=== PATIENT | male | born 1960 | race Caucasian/White ===

== ENCOUNTER 2021-05-07 22:35 | Outpatient (REF) | payer OTHER, SELFPAY ==
[2021-05-07 23:36] LABS: Influenza A PCR NEGATIVE (Negative); Influenza B PCR NEGATIVE (Negative); Resp Syncy Virus RNA Qual PCR NEGATIVE (Negative); SARS COV2 PCR INHOUSE NEGATIVE (Negative)
== END 2021-05-07 22:36 | disposition home or self-care (01) ==
LOC: HO.LAB 22:35
PROVIDERS: Internal Medicine; Visit Provider Internal Medicine
DX: Z20.822 Contact with and (suspected) exposure to COVID-19 (principal)
CPT/HCPCS: 0241U; 36415

== ENCOUNTER 2021-05-17 13:12 | Outpatient (REF) | payer OTHER, SELFPAY ==
[2021-05-17 14:05] LABS: Influenza A PCR NEGATIVE (Negative); Influenza B PCR NEGATIVE (Negative); Resp Syncy Virus RNA Qual PCR NEGATIVE (Negative); SARS COV2 PCR INHOUSE NEGATIVE (Negative)
== END 2021-05-17 13:13 | disposition home or self-care (01) ==
LOC: HO.LNP 13:12
PROVIDERS: Visit Provider Internal Medicine
DX: Z20.822 Contact with and (suspected) exposure to COVID-19 (principal)
CPT/HCPCS: 0241U

== ENCOUNTER 2021-09-20 10:10 | Outpatient (REF) | payer OTHER, SELFPAY ==
[2021-09-20 14:15] LABS: Influenza A PCR NEGATIVE (Negative); Influenza B PCR NEGATIVE (Negative); Resp Syncy Virus RNA Qual PCR NEGATIVE (Negative); SARS COV2 PCR INHOUSE NEGATIVE (Negative)
== END 2021-09-20 10:11 | disposition home or self-care (01) ==
LOC: HO.10HDLNP 10:10
PROVIDERS: Visit Provider Internal Medicine
DX: Z20.822 Contact with and (suspected) exposure to COVID-19 (principal)
CPT/HCPCS: 0241U

== ENCOUNTER 2022-05-23 09:25 | Outpatient (REF) | payer OTHER, SELFPAY ==
[2022-05-23 10:29] LABS: MANUAL DIFF FLAG NO
[2022-05-23 10:41] LABS: Basophils Percent Auto 0.5 % (0-2); Eosinophils Percent Auto 0.5 % (0-4); Hematocrit 42.3 % (42.0-52.0); Hemoglobin 14.4 g/dl (14.0-18.0); Imm Gran Abs Auto 0.03 X10*3/uL (0.00-0.03); Imm Gran Pct Auto 0.4 % (0.0-0.4); Lymphocytes Absolute Auto 1.3 X10*3/uL (1.2-4.9); Lymphocytes Percent Auto 15.1 % (20-40); Mean Corpuscular Hemoglobin 29.1 pg (27.0-33.0); Mean Corpuscular Volume 85.6 fL (80.0-98.0); Mean Platelet Volume 10.4 fL (9.4-12.4); Monocytes Absolute Auto 0.7 X10*3/uL (0.1-1.2); Monocytes Percent Auto 8.2 % (2-11); Neutrophils Absolute Auto 6.4 x10*3/uL (2.0-8.3); Neutrophils Percent Auto 75.3 % (45-73); Platelet Count 309 X10*3/uL (160-400); Red Blood Count 4.94 X10*6/uL (4.60-5.80); White Blood Count 8.5 X10*3/uL (4.8-10.8)
[2022-05-23 10:52] LABS: Alanine Aminotransferase 25 U/L (0-40); Albumin Level 4.6 g/dL (3.5-5.0); Alkaline Phosphatase 77 U/L (39-117); Anion Gap 14 (12-20); Aspartate Amino Transferase 29 U/L (5-37); Bilirubin Total 0.5 mg/dL (0.0-1.0); Blood Urea Nitrogen 15 mg/dL (9-16); Calcium 9.6 mg/dL (8.4-10.2); Carbon Dioxide 27 mmol/L (22-29); Chloride 106 mmol/L (96-108); Cholesterol 197 mg/dL; Estimated Glomerular Filt Rate > 60; Glucose Fasting 106 mg/dL (60-99); HDL Cholesterol 48 mg/dL; LDL Cholesterol Calculated 135 mg/dl; Potassium 4.8 mmol/L (3.3-5.1); Sodium 142 mmol/L (135-145); Total Protein 7.1 g/dL (6.5-8.0); Triglycerides 70 mg/dL
[2022-05-23 11:14] LABS: Prostate Specific Antigen Scr 1.45 ng/mL (<0.05-4.0)
== END 2022-05-23 09:26 | disposition home or self-care (01) ==
LOC: HO.10HDL 09:25
PROVIDERS: Visit Provider Internal Medicine
DX: Z00.00 Encounter for general adult medical examination without abnormal findings (principal); Z12.5 Encounter for screening for malignant neoplasm of prostate
CPT/HCPCS: 36415; 80053; 80061; 84153; 85025

== ENCOUNTER 2022-08-05 09:00 | Outpatient (REF) | payer OTHER, SELFPAY ==
[2022-08-05 11:15] LABS: Alanine Aminotransferase 31 U/L (0-40); Aspartate Amino Transferase 28 U/L (5-37); Cholesterol 187 mg/dL; HDL Cholesterol 36 mg/dL; LDL Cholesterol Calculated 125 mg/dl; Triglycerides 132 mg/dL
== END 2022-08-05 09:01 | disposition home or self-care (01) ==
LOC: HO.10HDL 09:00
PROVIDERS: Visit Provider Internal Medicine
DX: E78.00 Pure hypercholesterolemia, unspecified (principal)
CPT/HCPCS: 36415; 80061; 82550; 84450; 84460

== ENCOUNTER 2024-01-29 09:07 | Outpatient (REF) | payer OTHER, SELFPAY ==
[2024-01-29 10:22] LABS: MANUAL DIFF FLAG NO
[2024-01-29 10:46] LABS: Hematocrit 45.4 % (42.0-52.0); Hemoglobin 15.7 g/dl (14.0-18.0); Mean Corpuscular HGB Conc 34.6 g/dl (31.0-36.0); Mean Corpuscular Volume 86.6 fL (80.0-98.0); Red Blood Count 5.24 X10*6/uL (4.60-5.80); Red Cell Distribution Width 12.8 % (11.0-16.0); White Blood Count 10.1 X10*3/uL (4.8-10.8)
[2024-01-29 10:47] LABS: Basophils Absolute Auto 0.1 X10*3/uL (0.0-0.2); Basophils Percent Auto 0.7 % (0-2); Eosinophils Absolute Auto 0.1 X10*3/uL (0.0-0.4); Eosinophils Percent Auto 0.8 % (0-4); Imm Gran Abs Auto 0.04 X10*3/uL (0.00-0.03); Imm Gran Pct Auto 0.4 % (0.0-0.4); Lymphocytes Absolute Auto 1.6 X10*3/uL (1.2-4.9); Lymphocytes Percent Auto 16.2 % (20-40); Mean Platelet Volume 10.3 fL (9.4-12.4); Monocytes Percent Auto 10.1 % (2-11); Neutrophils Absolute Auto 7.3 x10*3/uL (2.0-8.3); Neutrophils Percent Auto 71.8 % (45-73); Platelet Count 279 X10*3/uL (160-400)
[2024-01-29 11:09] LABS: Alanine Aminotransferase 41 U/L (0-40); Albumin Level 4.3 g/dL (3.5-5.0); Alkaline Phosphatase 78 U/L (39-117); Anion Gap 13 (12-20); Aspartate Amino Transferase 35 U/L (5-37); Bilirubin Total 0.7 mg/dL (0.0-1.0); Blood Urea Nitrogen 11 mg/dL (9-16); Calcium 9.6 mg/dL (8.4-10.2); Carbon Dioxide 29 mmol/L (22-29); Chloride 105 mmol/L (96-108); Cholesterol 190 mg/dL (<200); Estimated Glomerular Filt Rate > 60; Glucose Fasting 118 mg/dL (60-99); HDL Cholesterol 39 mg/dL (>40); LDL Cholesterol Calculated 127 mg/dL (<100); Potassium 4.1 mmol/L (3.3-5.1); Sodium 143 mmol/L (135-145); Total Protein 7.1 g/dL (6.5-8.0); Triglycerides 123 mg/dL (<150)
[2024-01-29 11:14] LABS: Prostate Specific Antigen Scr 0.51 ng/mL (<0.05-4.0)
== END 2024-01-29 09:08 | disposition home or self-care (01) ==
LOC: HO.10HDL 09:07
PROVIDERS: Visit Provider Internal Medicine
DX: Z12.5 Encounter for screening for malignant neoplasm of prostate (principal); N40.0 Benign prostatic hyperplasia without lower urinary tract symptoms; E78.00 Pure hypercholesterolemia, unspecified
CPT/HCPCS: 36415; 80053; 80061; 84153; 85025

== ENCOUNTER 2025-03-24 09:04 | Outpatient (AMB) | payer OTHER, SELFPAY ==
--- NOTE | 2025-03-24 09:08 | MHC.PC.OV ---
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 Hyperlipidemia-on atorvastatin 40 mg daily. Last LDL 127 Tubular adenoma-last colonoscopy 06/24 2020 J[place]SEY-underwent maxillomandibular advancement surgery. Not using CPAP despite still having JERSEY diagnosis following procedure Concerns: None Health maintenance: Last screening colonoscopy 06/24/2020 with tubular adenoma and 5 year follow-up advised. Dr. George Due for PSA ROS: General: No fevers, malaise, unintentional weight loss Cardiovascular: No chest pain, palpitations, or leg edema Respiratory: No shortness of breath, wheezing, cough Neuro: No headaches, weakness, paresthesias Skin: No rashes or lesions EXAM: Constitutional - Awake and Alert, No apparent distress Eyes - PERRL Cardiovascular - S1S2, RRR, No edema Respiratory - Normal lung expansion, Normal respiratory effort, No respiratory distress, CTA bilaterally Extremities - no calf tenderness bilaterally, no swelling Skin - Warm/Dry Neurological - Alert & oriented x3 Psychological - Appropriate affect PFSH Medical History (Updated 03/24/25 @ 09:34 by MAYCO Velazquez) Tubular adenoma J[place]SEY (obstructive sleep apnea) HLD (hyperlipidemia) Family History (Updated 03/24/25 @ 09:33 by MAYCO Velazquez) Sister Lymphoma Questionnaire PHQ-9 Over the last 2 weeks, how often have you been bothered by any of the following problems? 1. Little interest or pleasure in doing things: not at all 2. Feeling down, depressed, or hopeless: not at all 3. Trouble falling or staying asleep, or sleeping too much: not at all 4. Feeling tired or having little energy: not at all 5. Poor appetite or overeating: not at all 6. Feeling bad about yourself - or that you are a failure or have let yourself or your family down: not at all 7. Trouble concentrating on things, such as reading the newspaper or watching television: not at all 8. Moving or speaking so slowly that other people could have noticed. Or the opposite - being so fidgety or restless that you have been moving around a lot more than usual: not at all 9. Thoughts that you would be better off or of hurting yourself in some way: not at all Total score: 0 Source: Developed by Drs. Vinicio Gonzalez, Ese White, Herb Ruffin and colleagues, with an educational emmanuel from [employer]. Thrive Questionnaire Date Thrive assessed: 03/24/25 I am a: Patient What is your living situation today?: I have a steady place to live Within the past 12 months, did the food you bought not last and you didn't have the money to get more?: Never true Within the past 12 months, did you worry whether your food would run out before you got money to buy more?: Never true Do you have trouble paying for medicines?: No Do you have trouble getting transportation to medical appointments?: No Do you have trouble paying your heating and electricity bill?: No Do you have trouble taking care of your child, family member or friend?: No Do you have trouble with day-to-day activities such as bathing, preparing meals, shopping, managing finances, etc.?: No Are you currently unemployed and looking for a job?: No Are you interested in more education?: No THRIVE Score: 0 CAM-7 AMB Questionnaire CAM-7 Date CAM - 7 assessed: 03/24/25 Feeling nervous, anxious, or on edge: 0 = Not at all Not being able to stop or control worryin = Not at all Worrying too much about different things: 0 = Not at all Trouble relaxin = Not at all Being so restless that it is hard to sit still: 0 = Not at all Becoming easily annoyed or irritable: 0 = Not at all Feeling afraid as if something awful might happen: 0 = Not at all Total CAM-7 score (0-4 normal; 5-9 mild; 10-14 moderate; 15-21 severe): 0 Source: Developed by Drs. Vinicio Gonzalez, Ese White, Herb Ruffin and colleagues, with an educational emmanuel from [employer]. Physical exam (Primary Care) Vital Signs: Last Vital Signs Temp 97.2 F 03/24/25 09:11 Pulse 57 03/24/25 09:11 Resp 16 03/24/25 09:11 BP 152/82 H 03/24/25 09:11 Pulse Ox 98 03/24/25 09:11 Oxygen Delivery Method Room Air 03/24/25 09:11 BMI result Body Mass Index 29.2 PHQ-9: PHQ-9 Score PHQ-9: Total score 0 03/24/25 09:24 Thrive Assessment: Date of Thrive Assessment Date Thrive assessed 03/24/25 03/24/25 09:21 Coding Level of Care Code New Pt Level 4 (62063) Complex EM visit Add On G2211 Diagnoses HLD (hyperlipidemia) E78.5 [place] (obstructive sleep apnea) G47.33 Tubular adenoma D36.9 Assessment & Plan Assessment & Plan (1) HLD (hyperlipidemia): Code(s): E78.5 - Hyperlipidemia, unspecified Category: Medical Plan: Uncontrolled. Lipid panel ordered. Continue atorvastatin 40 mg daily and diet low in saturated fat nightly processed foods. Continue with regular exercise (2) J[place]SEY (obstructive sleep apnea): Code(s): G47.33 - Obstructive sleep apnea (adult) (pediatric) Category: Medical Plan: Recommend CPAP usage. He is counseled on the risks of untreated [place]Y (3) Tubular adenoma: Code(s): D36.9 - Benign neoplasm, unspecified site Category: Medical Plan: Referred for screening colonoscopy Plan Follow-up in the office in 1 year, labs to be completed prior to visit today. Referred for colonoscopy Orders: Orders Basic Metabolic Panel Today D36.9 - Benign neoplasm, unspecified site, E78.5 - Hyperlipidemia, unspecified, G47.33 - Obstructive sleep apnea (adult) (pediatric), Z12.5 - Encounter for screening for malignant neoplasm of prostate Hemoglobin A1c Today D36.9 - Benign neoplasm, unspecified site, E78.5 - Hyperlipidemia, unspecified, G47.33 - Obstructive sleep apnea (adult) (pediatric), Z12.5 - Encounter for screening for malignant neoplasm of prostate Liver Panel Today D36.9 - Benign neoplasm, unspecified site, E78.5 - Hyperlipidemia, unspecified, G47.33 - Obstructive sleep apnea (adult) (pediatric), Z12.5 - Encounter for screening for malignant neoplasm of prostate Complete Blood Count Auto Diff Today D36.9 - Benign neoplasm, unspecified site, E78.5 - Hyperlipidemia, unspecified, G47.33 - Obstructive sleep apnea (adult) (pediatric), Z12.5 - Encounter for screening for malignant neoplasm of prostate Lipid Panel Today D36.9 - Benign neoplasm, unspecified site, E78.5 - Hyperlipidemia, unspecified, G47.33 - Obstructive sleep apnea (adult) (pediatric), Z12.5 - Encounter for screening for malignant neoplasm of prostate Prostate Specific Antigen Today D36.9 - Benign neoplasm, unspecified site, E78.5 - Hyperlipidemia, unspecified, G47.33 - Obstructive sleep apnea (adult) (pediatric), Z12.5 - Encounter for screening for malignant neoplasm of prostate Referrals Gastroenterology Referral D36.9 - Benign neoplasm, unspecified site, Z12.11 - Encounter for screening for malignant neoplasm of colon
[2025-03-24 09:11] VITALS: BP 152/82; PULSE 57; RESP 16; TEMP 36.2; O2SAT 98; BMI 29.2
--- OUTSIDE RECORDS SUMMARY | 2025-03-24 09:21 | XMS_ITS | Patient Health Record ---
Author Organization [facility] Address [address] [place] [address] Care Team Providers Care Laboratory Mechanic Helper Name Role Phone Ty Baker MD Primary Care Provider Unavaila Joshua Medina Jr Unavailable Allergies Allergen (clinical drug ingredient) Drug/Non Drug Allergy documented on EMR Reaction Allergy Type Onset Date Status Sulfur (uncoded) Unknown Allergy Act heriberto Reason For Referral No Information Medications Medication SIG (Take, Route, Frequency, Duration) Notes Start Date End Date Status Aspir-81 Active Fexofenadine HCl 180 MG 1 tablet Orally Once a day Active Gemfibrozil 600 MG Orally Twice a day Active Simvastatin 40 MG 1 tablet in the even ing Orally Once a day Active MiraLax (colon prep) 8.3 ounce ((238) grams mixed with Gatorade or Crystal Light orally begin at 5:00 p.m. the day before the procedure for 1 day 06/10/2020 Active Multivitamin Active Immunizations Vaccine Route Administration Date Status Comme nts Influenza Unknown 06/26/2019 Administered Social History Tobacco Use: Social History Observation Description Date Details (start date - stop date) Never Smoker NA - NA Tobacco Use/Smoking Question Answer Notes Patient is a nonsmoker Alcohol Screen Question Answer Notes Did you have a drink contain ing alcohol in the past year? Yes How often did you have a dri nk containing alcohol in the past year? 2 to 4 times a month (2 points) How many drinks did you have on a typical day when you were drinking in the past year? 1 or 2 drinks (0 point) How often did you have 6 or more drinks on one occasion in the past year? Never (0 point) Points 2 Interpretation Negative Problems Problem Type SNOMED Code ICD Code Onset Dates Problem Status W/U Status Risk Notes Problem [id number] Colon cancer screening (Z12.11) Active confirmed Problem 378424484 Encounter for other preprocedural examination (Z01.818) Active confirmed Problem [id number] care home (current) use of aspirin (Z79.82) Active confirmed Plan Of Treatment Future Test Test Name Order Date COLONOSCOPY 06/10/2020 Insurance Providers Payer Name Payer Address Payer Phone Subscriber Number Group Number Insured Name Patient Relationship to Insured Coverage Start Date Coverage End Date [facility] Navigator Plan(REFERR AL IS NEEDED) [address] [place] [address] [id number] SAM JOHNS Self - patient is the insured Medical (General) History Medical History History ICD Code sleep apnea elevated cholesterol Surgical History Surgery Date(Month/Year) right shoulder surgery uvulopalatopharyngoplasty
== END 2025-03-24 09:39 | disposition home or self-care (01) ==
LOC: HO.HMCHD 09:05
PROVIDERS: PCP Internal Medicine; Visit Provider Physician Assistant
DX: E78.5 Hyperlipidemia, unspecified (principal); G47.33 Obstructive sleep apnea (adult) (pediatric); D36.9 Benign neoplasm, unspecified site

== ENCOUNTER 2025-03-25 09:18 | Outpatient (REF) | payer MEDICARE, OTHER, SELFPAY ==
[2025-03-25 09:46] LABS: MANUAL DIFF FLAG NO
[2025-03-25 09:51] LABS: Hematocrit 44.2 % (42.0-52.0); Hemoglobin 15.3 g/dl (14.0-18.0); Imm Gran Abs Auto 0.03 X10*3/uL (0.00-0.03); Imm Gran Pct Auto 0.3 % (0.0-0.4); Lymphocytes Absolute Auto 1.5 X10*3/uL (1.2-4.9); Mean Corpuscular HGB Conc 34.6 g/dl (31.0-36.0); Mean Corpuscular Hemoglobin 29.3 pg (27.0-33.0); Mean Corpuscular Volume 84.7 fL (80.0-98.0); NRBC Abs Auto 0.000 X10*3/uL (0.0-0.012); NRBC Pct Auto 0.0 /100WBC (0.0-0.2); Platelet Count 264 X10*3/uL (160-400); Red Blood Count 5.22 X10*6/uL (4.60-5.80); White Blood Count 8.7 X10*3/uL (4.8-10.8)
--- OUTSIDE RECORDS SUMMARY | 2025-03-25 09:53 | XMS_ITS | Patient Health Record ---
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 (Z79.82) Active confirmed Plan Of Treatment Future Test Test Name Order Date COLONOSCOPY 06/10/2020 Insurance Providers Payer Name Payer Address Payer Phone Subscriber Number Group Number Insured Name Patient Relationship to Insured Coverage Start Date Coverage End Date [facility] Navigator Plan(REFERR AL IS NEEDED) [address] [place] [address] [id number] SAM JOHNS Self - patient is the insured Medical (General) History Medical History History ICD Code sleep apnea elevated cholesterol Surgical History Surgery Date(Month/Year) right shoulder surgery uvulopalatopharyngoplasty
[2025-03-25 10:00] LABS: Hemoglobin A1C 192.1124 umol/L; Total Hemoglobin (HGBA1C) 3991.5537 umol/L
[2025-03-25 11:23] LABS: Alanine Aminotransferase 36 U/L (0-40); Albumin Level 4.5 g/dL (3.5-5.0); Alkaline Phosphatase 80 U/L (39-117); Anion Gap 13 (12-20); Aspartate Amino Transferase 36 U/L (5-37); Blood Urea Nitrogen 16 mg/dL (9-16); Calcium 9.3 mg/dL (8.4-10.2); Carbon Dioxide 29 mmol/L (22-29); Chloride 106 mmol/L (96-108); Cholesterol 172 mg/dL (<200); Estimated Glomerular Filt Rate > 60; HDL Cholesterol 38 mg/dL (>40); Potassium 4.4 mmol/L (3.3-5.1); Sodium 144 mmol/L (135-145); Total Protein 7.0 g/dL (6.5-8.0); Triglycerides 92 mg/dL (<150)
[2025-03-25 11:32] LABS: Prostate Specific Antigen 1.00 ng/mL (<0.05-4.0)
== END 2025-03-25 09:19 | disposition home or self-care (01) ==
LOC: HO.10HDL 09:18
PROVIDERS: Visit Provider Physician Assistant
DX: E78.5 Hyperlipidemia, unspecified (principal); G47.33 Obstructive sleep apnea (adult) (pediatric); D36.9 Benign neoplasm, unspecified site; Z12.5 Encounter for screening for malignant neoplasm of prostate
CPT/HCPCS: 36415; 80048; 80061; 80076; 83036; 84153; 85025

== ENCOUNTER 2025-06-24 16:21 | Outpatient (AMB) | payer MEDICARE, OTHER, SELFPAY ==
--- NOTE | 2025-06-24 16:27 | MHC.PC.OV ---
Vital Signs 06/24/25 16:29 Height 5 ft 3 in Weight 76.204 kg BMI 29.8 BP 162/94 H Respiration 14 Pulse 61 Pulse Source Pulse Oximeter Temp 97.8 F Temp Source Temporal Artery Scan Pulse Oximetry (%) 96 Intake Visit Reasons: 3 month f/u Guardian Family Member Required: No Accompanied by: Self / Same As Patient Allergies Sulfa (Sulfonamide Antibiotics) Allergy (Mild, Verified 06/24/25 16:27) Rash Medication List - Last Reconciled 06/24/25 by MAYCO Velazquez atorvastatin (Lipitor) 80 mg PO BEDTIME fluticasone propionate 50 mcg/actuation 1 spray intranasal BID lisinopril 10 mg PO DAILY HPI HPI Comments History of Present Illness Details 64-year-old male with history of hyperlipidemia, tubular adenoma, and J[place]SEY presents to the office today for management of chronic conditions and for annual physical exam. Lives with his and feels safe there. 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 No alcohol use. No history of cigarette smoking. No history of drug use or marijuana. Walks 4-5 miles daily for exercise. Follows a healthy diet overall. Hyperlipidemia-Last LDL 116, goal less than 70 given new diagnosis of type 2 diabetes. Atorvastatin was increased to 80 mg daily. Tubular adenoma-last colonoscopy 06/24 2020, needs to schedule J[place]SEY-underwent maxillomandibular advancement surgery. Not using CPAP despite still having JERSEY diagnosis following procedure Type 2 diabetes- new diagnosis. A1c 6.6%. Hypertension-blood pressures have been elevated last few uses, today 162/94. Not currently on antihypertensives Concerns: None Health maintenance: Last screening colonoscopy 06/24/2020 with tubular adenoma and 5 year follow-up advised. Dr. George Due for PSA Annual eye exams- NE ophthamology. Wears corrective lenses Due for skin exam, FH melanoma. Wears sunscreen Dentist twice yearly Reviewed past medical, surgical, family, social history. ROS: General: No fevers, malaise, unintentional weight loss HEENT: No blurred vision, diplopia. No sore throat, nasal congestion, rhinorrhea, sinus pain, ear pain. No hearing loss Neck - no adenopathy Cardiovascular: No chest pain, palpitations, or leg edema Respiratory: No shortness of breath, wheezing, cough Breast: No pain, palpable lumps, nipple inversion GI: No dysphagia, odynophagia, globus sensation. No abdominal pain, nausea, vomiting, diarrhea, constipation, melena, hematochezia : No dysuria, hematuria, increased urinary frequency, decreased urinary output. PLATEMAKER: No abn vaginal bleeding or discharge MSK: No myalgia, back pain, arthralgias Neuro: No headaches, weakness, paresthesias Psych: no depression/anxiery. No AH/VH. No SI/HI Skin: No rashes or lesions EXAM: Constitutional - Awake and Alert, No apparent distress Eyes - PERRLA, EOMI. Anicteric Ears - external ears normal, canals clear, TMs intact and pearly triplett with good cone of light Nose- septum midline, nares clear, no sinus tenderness Mouth/throat- mucosa moist, tongue and uvula midline, no erythema/edema or tonsillar adenopathy. Neck-trachea midline, thyroid symmetric without palpable nodules, no adenopathy Cardiovascular - S1S2, RRR, No edema Respiratory - Normal lung expansion, Normal respiratory effort, No respiratory distress, CTA bilaterally Gastrointestinal - NT / ND; +BS; No rebound or guarding - No CVA tenderness Extremities - no calf tenderness bilaterally, no swelling Musculoskeletal - Normal inspection, normal ROM Skin - Warm/Dry, no concerning lesions Neurological - Alert & oriented x3, CN II-XII in tact, 5/5 strength BUE and BLE, 2+ patellar reflexes, sensation intact Psychological - Appropriate affect PFSH Medical History (Updated 06/24/25 @ 17:07 by MAYCO Velazquez) Hypertension Type 2 diabetes mellitus Tubular adenoma J[place] (obstructive sleep apnea) HLD (hyperlipidemia) Surgical History History of colonoscopy (~06/24/20) Family History Sister Lymphoma Father Diabetes Maternal Grandfather Melanoma Mother Lung disease Questionnaire Thrive Questionnaire Date Thrive assessed: 03/24/25 CAM-7 AMB Questionnaire CAM-7 Date CAM - 7 assessed: 03/24/25 Source: Developed by Drs. Vinicio Gonzalez, Ese White, Herb Ruffin and colleagues, with an educational emmanuel from [employer]. Physical exam (Primary Care) Vital Signs: Last Vital Signs Temp 97.8 F 06/24/25 16:29 Pulse 61 06/24/25 16:29 Resp 14 06/24/25 16:29 BP 162/94 H 06/24/25 16:29 Pulse Ox 96 06/24/25 16:29 BMI result Body Mass Index 29.8 Thrive Assessment: Date of Thrive Assessment Date Thrive assessed 03/24/25 06/24/25 16:31 Coding Level of Care Code Est Pt Level 4 (77237) Est Pt Prev Care >65y(37472) Diagnoses Routine medical exam Z00.00 HLD (hyperlipidemia) E78.5 [place] (obstructive sleep apnea) G47.33 Tubular adenoma D36.9 Type 2 diabetes mellitus E11.9 Hypertension I10 Assessment & Plan Assessment & Plan (1) Routine medical exam: Code(s): Z00.00 - Encounter for general adult medical examination without abnormal findings Category: Medical Plan: 65-year-old male presenting for annual physical exam. Plan as below (2) HLD (hyperlipidemia): Code(s): E78.5 - Hyperlipidemia, unspecified Category: Medical Plan: Lipid panel ordered. Continue atorvastatin 80 mg daily as well as diet low in saturated fats and highly processed foods. Regular exercise (3) J[place]SEY (obstructive sleep apnea): Code(s): G47.33 - Obstructive sleep apnea (adult) (pediatric) Category: Medical Plan: Recommend CPAP usage. He is counseled on the risks of untreated [place]Y (4) Tubular adenoma: Code(s): D36.9 - Benign neoplasm, unspecified site Category: Medical Plan: Advised to call for colonoscopy (5) Type 2 diabetes mellitus: Code(s): E11.9 - Type 2 diabetes mellitus without complications Category: Medical Plan: Controlled. Updated hemoglobin A1c ordered. He is counseled on diabetic diet and educated on the risks of complications. Annual eye exams. (6) Hypertension: Code(s): I10 - Essential (primary) hypertension Category: Medical Plan: Initiate lisinopril 10 mg daily. Counseled on side effects Plan Follow up in the office in 2-3 weeks for blood pressure recheck. Routine screening labs as ordered below Continue with screening colonoscopies and PSA Continue following for annual skin exams and use sun protection-referred Annual eye exams Dental exams twice yearly Wear seat belt in car Recommend regular exercise and healthy diet Orders: Orders Basic Metabolic Panel Today E11.9 - Type 2 diabetes mellitus without complications, E78.5 - Hyperlipidemia, unspecified Microalbumin, Random (w Creat) Today E11.9 - Type 2 diabetes mellitus without complications, E78.5 - Hyperlipidemia, unspecified Hemoglobin A1c 4 Months E11.9 - Type 2 diabetes mellitus without complications Hemoglobin A1c Today E11.9 - Type 2 diabetes mellitus without complications, E78.5 - Hyperlipidemia, unspecified Lipid Panel Today E11.9 - Type 2 diabetes mellitus without complications, E78.5 - Hyperlipidemia, unspecified Referrals Dermatology Referral Z12.83 - Encounter for screening for malignant neoplasm of skin, Z80.8 - Family history of malignant neoplasm of other organs or systems Medications: New lisinopril 10 mg PO DAILY 90 tabs 1RF
[2025-06-24 16:29] VITALS: BP 162/94; PULSE 61; RESP 14; TEMP 36.6; O2SAT 96; BMI 29.8
--- OUTSIDE RECORDS SUMMARY | 2025-06-24 17:14 | XMS_ITS | Patient Health Record ---
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 (Z79.82) Active confirmed Plan Of Treatment Future Test Test Name Order Date COLONOSCOPY 06/10/2020 Insurance Providers Payer Name Payer Address Payer Phone Subscriber Number Group Number Insured Name Patient Relationship to Insured Coverage Start Date Coverage End Date [facility] Navigator Plan(REFERR AL IS NEEDED) [address] [place] [address] [phone] [id number] SAM JOHNS Self - patient is the insured Medical (General) History Medical History History ICD Code sleep apnea elevated cholesterol Surgical History Surgery Date(Month/Year) right shoulder surgery uvulopalatopharyngoplasty
== END 2025-06-24 17:00 | disposition home or self-care (01) ==
LOC: HO.HMCHD 16:21
PROVIDERS: PCP Physician Assistant; Visit Provider Physician Assistant
DX: Z00.00 Encounter for general adult medical examination without abnormal findings (principal); E11.69 Type 2 diabetes mellitus with other specified complication; E78.5 Hyperlipidemia, unspecified; G47.33 Obstructive sleep apnea (adult) (pediatric); D36.9 Benign neoplasm, unspecified site; I10 Essential (primary) hypertension

== ENCOUNTER → 2025-06-24 16:21 | Outpatient (BNVA) | payer MEDICARE, OTHER, SELFPAY | PROVIDERS: PCP Physician Assistant; Visit Provider Physician Assistant | DX: Z00.00 Encounter for general adult medical examination without abnormal findings (principal); E78.5 Hyperlipidemia, unspecified; G47.33 Obstructive sleep apnea (adult) (pediatric); E11.9 Type 2 diabetes mellitus without complications; I10 Essential (primary) hypertension; Z86.0101 Personal history of adenomatous and serrated colon polyps; Z79.899 Other long term (current) drug therapy | CPT/HCPCS: 99212; 99397 ==

== ENCOUNTER 2025-06-26 08:51 | Outpatient (REF) | payer MEDICARE, OTHER, SELFPAY ==
--- OUTSIDE RECORDS SUMMARY | 2025-06-26 09:23 | XMS_ITS | Patient Health Record ---
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
[2025-06-26 10:51] LABS: Anion Gap 9 (12-20); Blood Urea Nitrogen 14 mg/dL (9-16); Calcium 8.6 mg/dL (8.4-10.2); Carbon Dioxide 29 mmol/L (22-29); Chloride 106 mmol/L (96-108); Cholesterol 164 mg/dL (<200); Estimated Glomerular Filt Rate > 60; HDL Cholesterol 34 mg/dL (>40); Potassium 4.3 mmol/L (3.3-5.1); Sodium 140 mmol/L (135-145); Triglycerides 164 mg/dL (<150)
[2025-06-26 11:31] LABS: Microalbum/Creatinine Ratio Ur 9.2 ug/mg cr (<30)
== END 2025-06-26 08:52 | disposition home or self-care (01) ==
LOC: HO.10HDL 08:51
PROVIDERS: Visit Provider Physician Assistant
DX: E11.9 Type 2 diabetes mellitus without complications (principal); E78.5 Hyperlipidemia, unspecified
CPT/HCPCS: 36415; 80048; 80061; 82043; 82570; 83036

== ENCOUNTER 2025-07-16 14:35 | Outpatient (AMB) | payer MEDICARE, OTHER, SELFPAY ==
--- NOTE | 2025-07-16 14:19 | MHC.PC.OV ---
Vital Signs 07/16/25 14:44 Height 5 ft 2.36 in Weight 74.843 kg BMI 29.8 BP 130/72 Blood Pressure Location Lt brachial Position Sitting Respiration 18 Pulse 62 Pulse Source Pulse Oximeter Temp 97.8 F Temp Source Temporal Artery Scan Pulse Oximetry (%) 97 Oxygen Delivery Method Room Air Intake Visit Reasons: 3 wk f/u Tray Room Worker Required: No Accompanied by: Self / Same As Patient Allergies Sulfa (Sulfonamide Antibiotics) Allergy (Mild, Verified 07/16/25 14:20) Rash Tobacco use date assessed: 07/16/25 Fall risk assessment: No Falls in past year Last assessed Fall Risk: 07/16/25 Dental Screening Dental Screen Date: 07/16/25 Did you have a dental visit in the last 12 months?: No Did you have a dental problem in the last 6 months where you did not have access to dental care?: No Was dental information given to patient?: Patient has dentist HPI HPI Comments History of Present Illness Details 64-year-old male with history of hyperlipidemia, tubular adenoma, and JERSEY presents to the office today for follow up. Tubular adenoma-last colonoscopy 06/24 2020, needs to schedule JERSEY-underwent maxillomandibular advancement surgery. Not using CPAP despite still having JERSEY diagnosis following procedure Type 2 diabetes- updated A1c 6.3%. Has been making significant diet changes as well as exercising. He has lost 5 lb since last visit 3 weeks ago. Has been walking wearing a 30 lb vest. Hypertension-started on lisinopril 10 mg daily at last visit due to significantly elevated blood pressures. Blood pressure in the office 130/72. Also takes his blood pressure at home with similar readings per his report. Denies any adverse side effects Concerns: Reporting nasal congestion following eating. Reports this occurs with any type of food. He denies any reflux symptoms, nausea, vomiting. Reports this resolves after supplements. Does have chronic nasal congestion related to ?small sinus passages? and does take Yarely on a daily basis. Does not follow with ENT ROS: See HPI EXAM: Constitutional - Awake and Alert, No apparent distress Eyes - PERRL Cardiovascular - S1S2, RRR, No edema Respiratory - Normal lung expansion, Normal respiratory effort, No respiratory distress, CTA bilaterally Extremities - no calf tenderness bilaterally, no swelling Skin - Warm/Dry Neurological - Alert & oriented x3 Psychological - Appropriate affect [facility] Medical History (Updated 06/24/25 @ 17:07 by MAYCO Velazquez) Hypertension Type 2 diabetes mellitus Tubular adenoma JERSEY (obstructive sleep apnea) HLD (hyperlipidemia) Surgical History History of colonoscopy (~06/24/20) Family History Sister Lymphoma Father Diabetes Maternal Grandfather Melanoma Mother Lung disease Social History Housing: House Patient Tobacco Use Status: Never used Tobacco e-Cigarette/Vaping Use: Never Used service: No Current occupational status: employed and retired Current occupation: [employer] Questionnaire Thrive Questionnaire Date Thrive assessed: 03/24/25 AUDIT C Alcohol Use Questionnaire (AUDIT-C) 1. How often do you have a drink containing alcohol?: Never 3. How often do you have six or more drinks on one occasion?: Never Total Score: 0 CAM-7 AMB Questionnaire CAM-7 Date CAM - 7 assessed: 03/24/25 Source: Developed by Drs. Vinicio Gonzalez, Ese White, Herb Ruffin and colleagues, with an educational emmanuel from [employer]. Physical exam (Primary Care) Vital Signs: Last Vital Signs Temp 97.8 F 07/16/25 14:44 Pulse 62 07/16/25 14:44 Resp 18 07/16/25 14:44 BP 130/72 07/16/25 14:44 Pulse Ox 97 07/16/25 14:44 Oxygen Delivery Method Room Air 07/16/25 14:44 BMI result Body Mass Index 29.8 Tobacco/Smoking Status: Tobacco use Status Tobacco use date assessed 07/16/25 07/16/25 14:21 Patient Tobacco Use Status Never used Tobacco 07/16/25 14:47 e-Cigarette/Vaping Use Never Used 07/16/25 14:47 Thrive Assessment: Date of Thrive Assessment Date Thrive assessed 03/24/25 07/16/25 14:21 Coding Level of Care Code Est Pt Level 4 (64918) Complex EM visit Add On G2211 Diagnoses Hypertension I10 HLD (hyperlipidemia) E78.5 Type 2 diabetes mellitus E11.9 JERSEY (obstructive sleep apnea) G47.33 Congestion of nasal sinus R09.81 Assessment & Plan Assessment & Plan (1) Hypertension: Code(s): I10 - Essential (primary) hypertension Category: Medical Plan: Controlled. Continue lisinopril 10 mg daily. (2) HLD (hyperlipidemia): Code(s): E78.5 - Hyperlipidemia, unspecified Category: Medical Plan: Slightly elevated above goal of less than 70, continue working on lifestyle modifications. Continue atorvastatin 80 mg nightly. (3) Type 2 diabetes mellitus: Code(s): E11.9 - Type 2 diabetes mellitus without complications Category: Medical Plan: Controlled with repeat A1c. Continue with dietary modifications and weight loss efforts. Continue with annual eye exams and foot exams (4) JERSEY (obstructive sleep apnea): Code(s): G47.33 - Obstructive sleep apnea (adult) (pediatric) Category: Medical Plan: Controlled (5) Congestion of nasal sinus: Code(s): R09.81 - Nasal congestion Plan: Postprandial congestion. Suspect this is just related to a chronic sinusitis but may be related to underlying GERD. He is given prescription for omeprazole 20 mg daily to be taken for 3 weeks and is then advised to reach out to the office. If symptoms do persist despite the omeprazole, will refer to ENT Plan Follow-up in the office in 4 months, sooner if needed. Reviewed last labs. Repeat labs to be completed several days prior to next visit Orders: Orders Hemoglobin A1c 4 Months E11.9 - Type 2 diabetes mellitus without complications, E78.5 - Hyperlipidemia, unspecified, I10 - Essential (primary) hypertension Lipid Panel 4 Months E11.9 - Type 2 diabetes mellitus without complications, E78.5 - Hyperlipidemia, unspecified, I10 - Essential (primary) hypertension Liver Panel 4 Months E11.9 - Type 2 diabetes mellitus without complications, E78.5 - Hyperlipidemia, unspecified, I10 - Essential (primary) hypertension Basic Metabolic Panel Today E11.9 - Type 2 diabetes mellitus without complications, E78.5 - Hyperlipidemia, unspecified, I10 - Essential (primary) hypertension Medications: New omeprazole 20 mg PO DAILY 21 caps 0RF
[2025-07-16 14:44] VITALS: BP 130/72; PULSE 62; RESP 18; TEMP 36.6; O2SAT 97; BMI 29.8
--- OUTSIDE RECORDS SUMMARY | 2025-07-16 20:47 | XMS_ITS | Patient Health Record ---
Author Organization [facility] Address [address] [place] [address] Care Team Providers Care Hypoid Gear Tester Name Role Phone Samuel (RETIRED) Ty JAIN Primary Care Provide Joshua Lawson Jr Unavailable [phone] Allergies Allergen (clinical drug ingredient) Drug/Non Drug [...] at 5:00 p.m. 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 of aspirin (Z79.82) Active confirmed Plan Of Treatment Future Test Test Name Order Date COLONOSCOPY 06/10/2020 Insurance Providers Payer Name Payer Address Payer Phone Subscriber Number Group Number Insured Name Patient Relationship to Insured Coverage Start Date Coverage End Date [facility] Plan(REFERR AL IS NEEDED) [id number] [place] [address] [id number] SAM JOHNS Self - patient is the insured Medical (General) History Medical History History ICD Code sleep apnea elevated cholesterol Surgical History Surgery Date(Month/Year) right shoulder surgery uvulopalatopharyngoplasty
== END 2025-07-16 15:13 | disposition home or self-care (01) ==
LOC: HO.HMCHD 14:36
PROVIDERS: PCP Physician Assistant; Visit Provider Physician Assistant
DX: I10 Essential (primary) hypertension (principal); E78.5 Hyperlipidemia, unspecified; E11.9 Type 2 diabetes mellitus without complications; G47.33 Obstructive sleep apnea (adult) (pediatric); R09.81 Nasal congestion

== ENCOUNTER → 2025-07-16 14:35 | Outpatient (BNVA) | payer MEDICARE, OTHER, SELFPAY | PROVIDERS: PCP Physician Assistant; Visit Provider Physician Assistant | DX: I10 Essential (primary) hypertension (principal); E78.5 Hyperlipidemia, unspecified; E11.9 Type 2 diabetes mellitus without complications; G47.33 Obstructive sleep apnea (adult) (pediatric); R09.81 Nasal congestion; Z79.899 Other long term (current) drug therapy | CPT/HCPCS: 99212 ==